=== PATIENT | female | born 1965 | race Caucasian/White ===

== ENCOUNTER 2023-12-06 10:58 | Emergency (ER) | payer OTHER, SELFPAY ==
[2023-12-06 11:00] VITALS: BP 136/77
[2023-12-06 11:04] VITALS: BP 136/77
[2023-12-06 11:11] VITALS: BMI 29.7
[2023-12-06 11:28] LABS: % Basophils 0.7 % (0-2); % Eosinophils 3.3 % (0-6); % Immature Granulocytes 0.1 % (0-0.5); % Lymphocytes 34.3 % (20.5-51.1); % Monocytes 5.5 % (1.7-9.3); % Neutrophils 56.1 % (42.2-75.2); Absolute Basophils 0.1 10^3/uL (0-0.2); Absolute Eosinophils 0.3 10^3/uL (0-0.7); Absolute Lymphocytes 2.8 10^3/uL (1.2-3.4); Absolute Monocytes 0.5 10^3/uL (0.1-0.6); Absolute Neutrophils 4.6 10^3/uL (1.4-6.5); Hemoglobin 13.2 g/dL (12.0-16.0); Mean Corp Hgb Conc. 34.7 g/dL (33.0-37.0); Mean Corpuscular Hgb 28.3 pg (27.0-31.0); Mean Corpuscular Volume 81.4 fL (81.0-99.0); Mean Platelet Volume 8.8 fL (7.4-10.4); Nucleated Red Blood Cells % 0 %; Platelet Count 310 10^3/uL (130-400); Red Blood Cell Count 4.67 10^6/uL (4.20-5.40); Red Cell Dist. Width 17.3 % (11.5-14.5); White Blood Cell Count 8.2 10^3/uL (4.8-10.8)
--- NOTE | 2023-12-06 11:35 | ED.GENMED ---
History of Present Illness
<Mary Long PA-C - Last Filed: 12/06/23 16:59>
General
Chief Complaint: Fall
Source: patient
Exam Limitations: none
Time Seen by Provider: 12/06/23 11:00
Nursing documentation reviewed up to this point in time: agreed with
Travel History
Have you had any contact with someone who has COVID-19?: No
Do you have any symptoms of coronavirus? Fever > 100 degrees, chills, cough, shortness of breath, sore throat, loss of taste or smell, muscle aches, or headache?: No
History of Present Illness
History of Present Illness:
Patient is a 58 year old female with asthma presenting via ems following mechanical fall at work about an hour ago. Patient states that she slipped coming down on her right elbow and right lateral knee. Patient reporting very severe pain in right
knee and has been unable to move knee since. She does endorse some tingling in right toes. She does have some pain in right elbow but has full range of motion. She did not hit her head or lose consciousness. She denies any chest pain, shortness
of breath, neck pain, back pain. She denies any belly pain.
She was given 75 mcg of fentanyl and 4 mg of Zofran in EMS.
Phy Exam
<Mary Long PA-C - Last Filed: 12/06/23 16:59>
Physical Exam
Physical Exam:
General: In moderate distress due to pain and non-toxic
Vitals: VSS, afebrile
HEENT: Atraumatic, normocephalic; pupils equal round and reactive to light bilaterally; protecting airway
Neck: appears supple, no cervical spine or midline spinal tenderness
CV: RRR, heart sounds normal, no evidence of cyanosis
Resp: No evidence of respiratory distress, lungs clear, no accessory muscle use
Abd: Soft, nontender; non-distended
Extremities: Diffuse swelling to right knee without any obvious deformity; tenderness at tibial tuberosity; very limited range of motion in knee due to pain; mild superficial abrasion to right elbow with small hematoma, no bony tenderness, full ROM
of right elbow; right lower extremity neurovascularly intact, right upper extremity neurovascularly intact
Neuro: alert and oriented to person, place, time; speech normal; no focal motor deficits
Psych: Normal affect
Skin: Superficial abrasion to right elbow
Course
<Mary Long PA-C - Last Filed: 12/06/23 16:59>
Orders/Labs/Results
Orders:
Orders
12/06/23 11:17
CR Elbow - Right Min 3 Views Urgent
Comment:
Reason For Exam: fall
CR Knee- Right 4 Or More View* Urgent
Comment:
Reason For Exam: fall
12/06/23 11:19
Complete Blood Count/With Diff Urgent
Comprehensive Metabolic Panel Urgent
12/06/23 12:42
CT Lower Ext W/o Iv Cont Rt Urgent
Comment: questionable fracture tibial tuberosity on xray
Reason For Exam: R knee
12/06/23 13:02
HYDROmorphone [Dilaudid] 1 mg IV NOW STA
Ondansetron Injectable [Zofran] 4 mg IV NOW STA
12/06/23 14:31
Crutches-Treatment ONCE
Knee Immobilizer Right-Treatme ONCE
12/06/23 15:36
PT Consult [Pt Eval And Treat] Urgent
Treatment: crutches
Activity Level: With Assistance
Abnormal Lab Results
12/06/23
11:19
RDW 17.3 H %
(11.5-14.5)
Creatinine 0.5 L mg/dL
(0.6-1.0)
Glucose 122 H mg/dl
(70-99)
12/06/23 11:19
12/06/23 11:19
Vital Signs
Initial and Last Documented VS:
Initial Vital Signs
Pulse Resp BP Pulse Ox
83 18 136/77 96
12/06/23 11:00 12/06/23 11:00 12/06/23 11:00 12/06/23 11:00
Last Documented Vital Signs
Temp Pulse Resp BP Pulse Ox
98.2 F 77 11 113/79 94
12/06/23 11:12 12/06/23 13:30 12/06/23 13:30 12/06/23 13:00 12/06/23 13:30
<Rajinder Odell DO - Last Filed: 12/06/23 15:30>
Orders/Labs/Results
Orders:
Orders
12/06/23 11:17
CR Elbow - Right Min 3 Views Urgent
Comment:
Reason For Exam: fall
CR Knee- Right 4 Or More View* Urgent
Comment:
Reason For Exam: fall
12/06/23 11:19
Complete Blood Count/With Diff Urgent
Comprehensive Metabolic Panel Urgent
12/06/23 12:42
CT Lower Ext W/o Iv Cont Rt Urgent
Comment: questionable fracture tibial tuberosity on xray
Reason For Exam: R knee
12/06/23 13:02
HYDROmorphone [Dilaudid] 1 mg IV NOW STA
Ondansetron Injectable [Zofran] 4 mg IV NOW STA
12/06/23 14:31
Crutches-Treatment ONCE
Knee Immobilizer Right-Treatme ONCE
12/06/23 15:36
PT Consult [Pt Eval And Treat] Urgent
Treatment: crutches
Activity Level: With Assistance
Abnormal Lab Results
12/06/23
11:19
RDW 17.3 H %
(11.5-14.5)
Creatinine 0.5 L mg/dL
(0.6-1.0)
Glucose 122 H mg/dl
(70-99)
12/06/23 11:19
12/06/23 11:19
Vital Signs
Initial and Last Documented VS:
Initial Vital Signs
Pulse Resp BP Pulse Ox
83 18 136/77 96
12/06/23 11:00 12/06/23 11:00 12/06/23 11:00 12/06/23 11:00
Last Documented Vital Signs
Temp Pulse Resp BP Pulse Ox
98.2 F 77 11 113/79 94
12/06/23 11:12 12/06/23 13:30 12/06/23 13:30 12/06/23 13:00 12/06/23 13:30
<aMry Long PA-C - Last Filed: 12/06/23 16:59>
MDM/Problems Addressed
Differential Diagnosis Includes:
Tibial fracture, patellar dislocation, knee sprain, ligamentous injury, elbow fracture
MDM/Problems Addressed:
Patient is a 58 y.o female presenting via EMS following mechanical fall at work earlier today. She fell and landed on right side of body, did not hit her head or lose consciousness. She complains of significant pain in right knee, unable to move
or bear weight. She also reports pain in right elbow. No neck pain, back pain. She is in mild distress due to pain upon arrival. Her vital signs are stable. Physical exam as documented above. She has a very superficial abrasion to right elbow
with small hematoma. She has some notable swelling to right knee most significant on medial aspect with tenderness over tibial plateau. No C-spine or midline spinal tenderness. Will give Dilaudid for pain and Zofran. Will get x-ray of right
elbow and right knee. Will reassess.
X-ray of elbow negative for any acute fracture or dislocation. X-ray of knee shows questionable fracture along lateral aspect tibial plateau�CT recommended. CT pending.
CT scan shows minimally impacted anterior lateral tibial plateau fracture without displacement. Discussed with orthopedics. Will place patient in knee immobilizer, crutches, nonweightbearing. Patient with significant difficulty with crutches�will
consult physical therapy.
Spoke with PT�patient successful with walker. Prescription written for walker. Patient will be discharged with knee immobilizer, nonweightbearing with walker, orthopedic follow-up. Patient comfortable this plan. All questions answered.
Chronic conditions affecting care:
Asthma, DM
Acute Exacerbation and/or Progression of Chronic Illness:
Right tibial plateau fracture
<Mary Long PA-C - Last Filed: 12/06/23 16:59>
*Radiology
Radiology exam reviewed: preliminary read by ED provider and radiology read reviewed
*Pulse Oximetry
Patient hypoxic: no
*Manager Image Interpretation
Rate: Manager Image- N/A
*Critical Care Note
Total Time (30-74mins, 75-104mins- exclusive of procedures): Not Applicable
ED Attending Note
<Mary Long PA-C - Last Filed: 12/06/23 16:59>
-
Portions of this chart may have been created with voice recognition software.� Occasional wrong word or��sound alike� substitutions may have occurred due to the inherent limitations of voice recognition software.
<Rajinder Odell DO - Last Filed: 12/06/23 15:30>
ED Attending Note
Patient seen and examined by attending physician: Yes
I performed the substantive portion of visit, reviewed & personally made and approve the management plan that is documented in note by myself or FARZANEH.: Yes
ED Attending Note:
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 Patient had difficulty weightbearing afterwards secondary to the pain in her right knee. Patient
is right-hand dominant. Patient denies any numbness or paresthesias. Patient denies any head injury, chest pain or abdominal pain. Patient denies any neck or back pain. On physical exam patient appears to be in mild to moderate distress
secondary to pain. Patient is normocephalic without neck tenderness. Chest is nontender abdomen is nontender. Patient does have swelling about the right knee but tender laterally. Right ankle is nontender. Right hip is nontender. In addition
the patient has mild bruising and swelling about the posterior aspect of the inferior elbow. Range of motion is full. Neurovascular and tendons intact in both areas. Patient's x-rays were reviewed as well as the CT it appears the patient has a
nondisplaced tibial plateau fracture. Patient will be treated with ice, compression, immobilization and crutches. Patient will be referred to orthopedics.
Discharge Plan
Departure
Patient Disposition: Home (Routine Discharge)
Date of Disposition: 12/06/23
Time of Disposition: 15:02
Patient with high blood pressure during this ER visit?: No
Condition: Good
Covid-19: Not Applicable
Discharge Problem:
Fracture of right tibial plateau, Injury of elbow, right
Instructions: Tibial Plateau Fracture (DC)
Prescriptions:
New
oxycodone-acetaminophen [Percocet] 5-325 mg tablet
See Rx Instructions .ROUTE .COMPLEX PRN (Reason: pain) Qty: 10 0RF
Rx Instructions:
1 tab orally Q4-6 hours as needed for pain
Referrals:
Amna Talavera PA [Family Provider] -
Aneesh Pizano MD [Active] - Call in 1-3 days for appt
Stand Alone Forms: Return to Work
Activity Restrictions/Additional Instructions:
- Return to the emergency department with any severe pain, severe headache, intractable vomiting, high fevers, chest pain, shortness of breath, numbness/ tingling in right lower extremity, worsening in current symptoms, or any other concerns
-As discussed�you have a fracture of your right tibial plateau. You should keep your knee in the immobilizer and remain non-weight bearing until you follow-up with orthopedics.
-A prescription for percocet has been sent to your pharmacy. You can take this every 4-6 hours as needed for pain. This medication may cause drowsiness. You can take tylenol as needed for pain.
-It is important that you apply ice to leg as frequently as possible.
-You should follow-up with orthopedics in a few days. You need to contact your workman compensation physician to determine covered orthopedics.
Interventions
Interventions:
*Risk Screen - Suicide Last Done: 12/06/23 11:00
*General Assessment Last Done: 12/06/23 11:00
*Neglect/Abuse Screening Last Done: 12/06/23 11:00
ED- Fall Risk Assessment Last Done: 12/06/23 16:43
*Nursing Disposition Last Done: 12/06/23 16:43
ED-Musculoskeletal Assessment Last Done: 12/06/23 11:34
ED- Neurological Assessment Last Done: 12/06/23 11:34
ED-Skin Assessment Last Done: 12/06/23 11:34
[2023-12-06 11:40] LABS: ALT (SGPT) 23 U/L (0-35); AST (SGOT) 29 U/L (14-36); Albumin 4.3 g/dl (3.5-5.0); Alkaline Phosphatase 46 U/L (38-126); Blood Urea Nitrogen 10 mg/dl (7-17); Carbon Dioxide 26 mmol/L (22-30); Chloride 105 mmol/L (98-107); Estimated Creatinine Clearance 115 ml/min; Glucose 122 mg/dl (70-99); Potassium 4.2 mmol/L (3.5-5.1); Sodium 137 mmol/L (135-145); Total Bilirubin 0.5 mg/dl (0.2-1.3); eGFR > 60.00
[2023-12-06 12:13] VITALS: BP 126/81
[2023-12-06 13:00] VITALS: BP 113/79
[2023-12-06] MEDS: ZOFRAN 4 MG IV (13:12)
[2023-12-06] MEDS: DILAUDID 1 MG IV (13:13)
== END 2023-12-06 16:45 | disposition home or self-care (01) ==
LOC: EMR 10:58
PROVIDERS: Physician Assistant; EMERGENCY PHYSICIAN Emergency Medicine; FAMILY PHYSICIAN Physician Assistant Medical
DX: S82.144A Nondisplaced bicondylar fracture of right tibia, initial encounter for closed fracture (principal); S50.01XA Contusion of right elbow, initial encounter; S50.311A Abrasion of right elbow, initial encounter; R11.0 Nausea; W18.30XA Fall on same level, unspecified, initial encounter; Y93.89 Activity, other specified; Y92.89 Other specified places as the place of occurrence of the external cause; Y99.0 Civilian activity done for income or pay; J45.909 Unspecified asthma, uncomplicated; E11.9 Type 2 diabetes mellitus without complications; F41.9 Anxiety disorder, unspecified; F32.A Depression, unspecified; F90.9 Attention-deficit hyperactivity disorder, unspecified type; Z79.84 Long term (current) use of oral hypoglycemic drugs; M43.22 Fusion of spine, cervical region
CPT/HCPCS: 99284; 96374; 29505; 96375; 73080; 73564; 73700; 80053; 85025

== ENCOUNTER 2024-02-04 17:09 | Emergency (ER) | payer OTHER, SELFPAY ==
[2024-02-04 17:18] VITALS: BP 161/84
[2024-02-04 17:39] LABS: % Basophils 0.6 % (0-2); % Eosinophils 1.3 % (0-6); % Immature Granulocytes 0.4 % (0-0.5); % Lymphocytes 17.4 % (20.5-51.1); % Monocytes 4.1 % (1.7-9.3); % Neutrophils 76.2 % (42.2-75.2); Absolute Basophils 0.1 10^3/uL (0-0.2); Absolute Eosinophils 0.2 10^3/uL (0-0.7); Absolute Immature Granulocytes 0.1 10^3/uL (0-0.05); Absolute Lymphocytes 2.2 10^3/uL (1.2-3.4); Absolute Monocytes 0.5 10^3/uL (0.1-0.6); Absolute Neutrophils 9.8 10^3/uL (1.4-6.5); Hematocrit 40.1 % (37.0-47.0); Hemoglobin 14.3 g/dL (12.0-16.0); Mean Corp Hgb Conc. 35.7 g/dL (33.0-37.0); Mean Corpuscular Hgb 29.3 pg (27.0-31.0); Mean Corpuscular Volume 82.2 fL (81.0-99.0); Mean Platelet Volume 8.9 fL (7.4-10.4); Nucleated Red Blood Cells % 0 %; Platelet Count 310 10^3/uL (130-400); Red Blood Cell Count 4.88 10^6/uL (4.20-5.40); Red Cell Dist. Width 14.1 % (11.5-14.5); White Blood Cell Count 12.9 10^3/uL (4.8-10.8)
[2024-02-04 17:42] LABS: Urine Albumin 1+ (Neg - Trace); Urine Bilirubin 1+ (Negative); Urine Character Very Cloudy (Clear); Urine Color Brown; Urine Glucose Negative (Negative); Urine Ketone 1+ (Negative); Urine Leukocyte 1+ (Negative); Urine Nitrite Positive (Negative); Urine Occult Blood 4+ (Negative); Urine Urobilinogen Negative (Neg - 1+)
[2024-02-04 17:53] LABS: HCG, Serum Qualitative Screen Negative
[2024-02-04 18:01] LABS: Urine Bacteria Moderate (Negative); Urine Red Blood Cell 70-80 /HPF (0-2)
[2024-02-04 18:06] LABS: ALT (SGPT) 20 U/L (0-35); AST (SGOT) 27 U/L (14-36); Albumin 5.1 g/dl (3.5-5.0); Alkaline Phosphatase 56 U/L (38-126); Blood Urea Nitrogen 12 mg/dl (7-17); Carbon Dioxide 27 mmol/L (22-30); Chloride 100 mmol/L (98-107); Glucose 118 mg/dl (70-99); Lipase 177 U/L (23-300); Potassium 4.3 mmol/L (3.5-5.1); Sodium 135 mmol/L (135-145); Total Bilirubin 0.8 mg/dl (0.2-1.3); eGFR > 60.00
--- NOTE | 2024-02-04 18:51 | ED.GENMED ---
History of Present Illness
General
Chief Complaint: Abdominal Pain
Source: patient
Exam Limitations: none
Time Seen by Provider: 02/04/24 18:29
Nursing documentation reviewed up to this point in time: agreed with
Travel History
Have you had any contact with someone who has COVID-19?: No
Do you have any symptoms of coronavirus? Fever > 100 degrees, chills, cough, shortness of breath, sore throat, loss of taste or smell, muscle aches, or headache?: No
History of Present Illness
History of Present Illness:
58 yr. old female presents with past medical history of gastric bypass surgery and gastritis to the ER complaining of sudden abdominal pain that started between 2 and 3 hours ago. She describes this as diffuse abdominal pain she is very nauseous
and uncomfortable. She has not vomited. She denies any fever or chills with the. She has no pain in her back. She has no prior history of kidney stones. She complains urinary frequency but no burning. She noticed yesterday that her urine was
little darker than normal. She denies any constipation diarrhea. She denies any black stools.
Patient does get colonoscopies every 3 years as both of her parents from colon cancer. No abnormalities on prior colonoscopies.
Review of Systems
Review of Systems
Allergies reviewed?: Yes
All Other Systems: ROS reviewed and negative except as documented in HPI and ROS
Constitutional: Reports no symptoms
Respiratory: Reports no symptoms
Cardiac: Reports no symptoms
ABD/GI: Reports abdominal pain and nausea; Denies vomiting, diarrhea or constipated
: Reports frequency; Denies flank pain or urgency
Musculoskeletal: Reports no symptoms; Denies back pain
Skin: Reports no symptoms
Neurological: Reports no symptoms
Psychiatric: Reports no symptoms
Phy Exam
General Physical Exam
General Presentation: no apparent distress
General age: appears stated age
General Skin: warm and dry
General Habitus: normal
General Mental: alert
General Hydration: appears well hydrated
Gastrointestinal Exam
Gastrointestinal Exam: soft and other (diffuse tenderness throughout anterior abdomen )
Neurological Exam
Neurological Exam: alert and oriented x3
Musculoskeletal Exam
Musculoskeletal Exam: full ROM
Skin Exam
Skin Exam: normal color and warm/dry
Psychiatric Exam
Psychiatric Exam: normal mood/affect
Course
Orders/Labs/Results
Orders:
Orders
02/04/24 17:22
Test Result ONCE
02/04/24 17:32
Complete Blood Count/With Diff Urgent
Comprehensive Metabolic Panel Urgent
HCG, Serum Qualitative Screen Urgent
Lipase Urgent
Urinalysis Reflex To Culture Urgent
Date Specimen was Collected: 02/04/24
Time Specimen was Collected: 17:22
Urine Microscopic Reflex Cult Urgent
Urine Culture Urgent
GIULIA Source: U
Specimen Description:
Date Specimen was Collected: 02/04/24
Time Specimen was Collected: 17:22
02/04/24 18:49
CT Abd/pel W Iv And Oral Contr Urgent
Comment:
Reason For Exam: diffuse abd pain nausea hx of gastric bypass surg
IV Insert/Care/Rem.- Treatment PRN
0.9% Sodium Chloride 1000 ml [Nss] 1,000 ml IV BOLUS
Iohexol [Omnipaque] See Protocol PO NOW STA
02/04/24 18:50
HYDROmorphone [Dilaudid] 0.5 mg IV NOW STA
Ondansetron Injectable [Zofran] 4 mg IV NOW STA
02/04/24 21:07
HYDROmorphone [Dilaudid] 0.5 mg IV NOW STA
02/04/24 21:08
HYDROmorphone [Dilaudid] 0.5 mg .ROUTE .STK-MED ONE
02/04/24 22:20
Cephalexin Monohydrate [Keflex] 500 mg PO NOW STA
Hydrocodone 5/APAP 325 [[place] 5/325] 1 tablet PO NOW STA
Abnormal Lab Results
02/04/24
17:32
WBC 12.9 H 10^3/uL
(4.8-10.8)
Abs Immat Gran (auto) 0.1 H 10^3/uL
(0-0.05)
Absolute Neuts (auto) 9.8 H 10^3/uL
(1.4-6.5)
Neutrophils % 76.2 H %
(42.2-75.2)
Lymphocytes % 17.4 L %
(20.5-51.1)
Glucose 118 H mg/dl
(70-99)
Albumin 5.1 H g/dl
(3.5-5.0)
Urine Ketones 1+ A
(Negative)
Ur Occult Blood Reflex 4+ A
(Negative)
Urine Nitrite (Reflex) Positive A
(Negative)
Urine Bilirubin 1+ A
(Negative)
Leukocyte Esterase Rfl 1+ A
(Negative)
Urine RBC 70-80 A /HPF
(0-2)
Urine Bacteria (Reflex) Moderate A
(Negative)
Urine Albumin (Reflex) 1+ A
(Neg - Trace)
02/04/24 17:32
02/04/24 17:32
Vital Signs
Initial and Last Documented VS:
Initial Vital Signs
Temp Pulse Resp BP Pulse Ox
98.3 F 72 20 161/84 100
02/04/24 17:18 02/04/24 17:18 02/04/24 17:18 02/04/24 17:18 02/04/24 17:18
Last Documented Vital Signs
Temp Pulse Resp BP Pulse Ox
98.3 F 88 16 132/80 96
02/04/24 17:18 02/04/24 19:40 02/04/24 19:40 02/04/24 19:40 02/04/24 19:40
Non Clinical Advisor consulted with Physician
Non Clinical Advisor consulted with physician?: Yes
Name of Physician Consulted: Mely
MDM/Problems Addressed
Differential Diagnosis Includes:
Not limited to diverticulitis obstruction renal colic
MDM/Problems Addressed:
Patient is a 58-year-old female with history of gastric bypass surgery presents with abdominal pain nausea. Patient does have significant blood on arrival to the ER and her urine in urinalysis but no gross hematuria. She denies any actual back
pain CAT scan does however show a 4 mm stone in the proximal portion of left ureter with mild hydromild perinephric standing. Patient denies any fevers. White count minimally elevated likely acute reactive. Patient has had nausea medicine and
pain medicine here. Urinalysis does show 70�80 RBCs consistent with stone there are nitrates and 6�10 white blood blood cells with squamous however with nitrates we will cautiously treat with Ceftin
*Critical Care Note
Total Time (30-74mins, 75-104mins- exclusive of procedures): Not Applicable
ED Attending Note
-
Portions of this chart may have been created with voice recognition software.� Occasional wrong word or��sound alike� substitutions may have occurred due to the inherent limitations of voice recognition software.
Discharge Plan
Departure
Patient Disposition: Home (Routine Discharge)
Date of Disposition: 02/04/24
Time of Disposition: 22:21
Patient with high blood pressure during this ER visit?: Yes
Condition: Fair
Covid-19: Not Applicable
Discharge Problem:
renal colic
Instructions: Renal Colic (DC)
Prescriptions:
New
cephalexin 500 mg capsule
500 mg PO BID Qty: 14 0RF
hydrocodone-acetaminophen 5-325 mg tablet
1 tab PO Q6H PRN (Reason: Pain) Qty: 10 0RF
ondansetron 4 mg tablet,disintegrating
4 mg PO Q8H PRN (Reason: nausea and vomiting) Qty: 10 0RF
No Action
oxycodone-acetaminophen [Percocet] 5-325 mg tablet
See Rx Instructions .ROUTE .COMPLEX PRN (Reason: pain) Qty: 10 0RF
Rx Instructions:
1 tab orally Q4-6 hours as needed for pain
Referrals:
Amna Talavera PA [Family Provider] -
Kolby Cruz Jr., MD [Active] -
Activity Restrictions/Additional Instructions:
As discussed stay well-hydrated. Prescriptions were sent for Zofran(, nausea medicine)Flomax to help pass the kidney stone and pain medicine to take as needed. These medications were sent to your pharmacy take as directed. Pain medication is a
narcotic and will cause constipation please take stool softeners which are [id number] while taking this medication. Call urology Tuesday for an appointment in the next several days. Return if any worsening of symptoms of increased pain nausea
vomiting fever chills.
Interventions
Interventions:
*Risk Screen - Suicide Last Done: 02/04/24 19:37
*General Assessment Last Done: 02/04/24 19:37
*Neglect/Abuse Screening Last Done: 02/04/24 19:37
ED- Fall Risk Assessment Last Done: 02/04/24 19:37
*ED COVID-19 Vaccine History Last Done: 02/04/24 19:37
MR-Fragqi-Rpitnshenk Assessment Last Done: 02/04/24 20:55
Discharge Date and Time
Print Language: BARBADIAN
[2024-02-04] MEDS: OMNIPAQUE 50 ML PO (19:23)
[2024-02-04] MEDS: DILAUDID 0.5 MG IV ×2 (19:33→21:10)
[2024-02-04] MEDS: ZOFRAN 4 MG IV (19:33)
[2024-02-04] MEDS: NSS 1000 IV (19:34)
[2024-02-04 19:37] VITALS: BMI 30.4
[2024-02-04 19:40] VITALS: BP 132/80
--- NOTE | 2024-02-04 21:00 | EDRN ---
Patient was having increased pain, informed Kaitlin, [employer], meds ordered to be given.
[2024-02-04] MEDS: NORCO 5/325 1 TABLET PO (22:29)
[2024-02-04] MEDS: KEFLEX 500 MG PO (22:29)
== END 2024-02-04 22:48 | disposition home or self-care (01) ==
LOC: EMR 17:09
PROVIDERS: EMERGENCY PHYSICIAN Emergency Medicine; FAMILY PHYSICIAN Physician Assistant Medical
DX: N13.2 Hydronephrosis with renal and ureteral calculous obstruction (principal); R11.0 Nausea; R03.0 Elevated blood-pressure reading, without diagnosis of hypertension; Z98.84 Bariatric surgery status; Z88.8 Allergy status to other drugs, medicaments and biological substances
CPT/HCPCS: 99285; 96361; 96374; 96375; 96376; 74177; 80053; 81003; 81015; 83690; 84703; 85025; 87086; Q9967

== ENCOUNTER 2024-02-06 19:29 | Observation (INO) | payer OTHER, SELFPAY ==
[2024-02-06 10:44] VITALS: BP 146/90
--- NOTE | 2024-02-06 12:40 | ED.GENMED ---
History of Present Illness
General
Chief Complaint: Flank Pain
Source: patient, records and previous radiology exam
Exam Limitations: none
Time Seen by Provider: 02/06/24 12:08
Nursing documentation reviewed up to this point in time: agreed with
Travel History
Have you had any contact with someone who has COVID-19?: No
Do you have any symptoms of coronavirus? Fever > 100 degrees, chills, cough, shortness of breath, sore throat, loss of taste or smell, muscle aches, or headache?: No
History of Present Illness
History of Present Illness:
58-year-old female returns with headache nausea vomiting flank pain seen here over the weekend diagnosed with a 4 mm proximal left ureteral stone discharged to home states she has been feeling unwell for the past 24 to 48 hours not keeping down any
fluids, no fevers but feels fatigued, never had a kidney stone before, she is concerned that she is getting dehydrated,
Past History
Past History
ED Past Surgical History: Orthopedic and Other (Gastric bypass); Negative Urological
Social History
Tobacco: Non-smoker
Alcohol: None
Drug: None
Personal:
Living: with family
Employment: Employed
Family History
Family History: Other (Noncontributory)
Review of Systems
Review of Systems
All Other Systems: Not applicable
Constitutional: Reports fatigue; Denies fever
EENT: Reports no symptoms
Respiratory: Reports no symptoms
Cardiac: Reports no symptoms
ABD/GI: Reports abdominal pain, nausea and vomiting
: Reports flank pain; Denies bleeding
Musculoskeletal: Reports no symptoms
Neurological: Reports dizzy and headache
Endocrine: Reports no symptoms
Hematologic/Lymphatic: Reports no symptoms
Phy Exam
Physical Exam
Physical Exam:
Physical Exam
General: nontoxic looks uncomfortable
Neck: Dry mucous membrane
Heart: s1/s2 regular rate and rhythm, no murmur. equal radial pulses.
Lungs: no acute respiratory distress. clear bilaterally
Abdomen: Mild tenderness in the left lower
Neuro: alert and oriented. no focal neurological deficits
Skin: no rash
Psychiatric: well kept. interactive and cooperative
Extremities: no edema.
Course
Orders/Labs/Results
Orders:
Orders
02/06/24 Lunch
Regular
At Your Request: Full Participation
02/06/24 12:21
IV Insert/Care/Rem.- Treatment PRN
0.9% Sodium Chloride 1000 ml [Nss] 1,000 ml IV BOLUS
HYDROmorphone [Dilaudid] 1 mg IV NOW STA
Ketorolac [Toradol] 15 mg IV NOW STA
Ondansetron Injectable [Zofran] 4 mg IV NOW STA
Test Result ONCE
02/06/24 12:50
Complete Blood Count/With Diff Urgent
Comprehensive Metabolic Panel Urgent
Comment: ADD ON
HCG, Serum Qualitative Screen Urgent
Urinalysis Reflex To Culture Urgent
Date Specimen was Collected: 02/06/24
Time Specimen was Collected: 12:44
Urine Microscopic Reflex Cult Urgent
02/06/24 13:06
Add On- LAB Urgent
Tests Added?: CMP
02/06/24 13:13
UROLOGY CONSULT Urgent
Consulting Provider: Ag Milligan
Was physician already notified: Yes
02/06/24 13:31
Abdomen Xray - 1 View [CR Abdomen - 1 View] Urgent
Comment:
Reason For Exam: kdiney stone
02/06/24 14:54
0.9% Sodium Chloride 1000 ml [Nss] 1,000 ml IV BOLUS
Ondansetron Injectable [Zofran] 4 mg IV NOW STA
02/06/24 17:31
Admit Patient As Directed
Co-Sign Provider:
Level of Care: Observation services
Assign to:: Medical/Surgical
Physician / Group: [facility]
Diagnosis: Kidney stone
Code Status As Directed
Resuscitation Status: Full Code
Acetaminophen [Tylenol] 650 mg PO Q4HPRN PRN
HYDROmorphone [Dilaudid] 0.5 mg IV Q2HPRN PRN
Ondansetron Injectable [Zofran] 4 mg IV Q6HPRN PRN
Oxycodone/Acetaminophen [Percocet 5/325] 1 tablet PO Q4HPRN PRN
Activity As Directed
Activity Level: As Tolerated
Intake/ Output As Directed
Frequency: Per unit guidelines
Okay to Shower As Directed
Strain Urine As Directed
Comment: strain all urine for stone
Vital Signs As Directed
Frequency: Per unit guidelines
02/06/24 17:32
Pneumatic Compression Sleeves As Directed
Type: Knee high
DX Deep Vein Thrombosis Video Routine
02/06/24 17:36
Budesonide [Pulmicort] 0.5 mg INH R BIDPRN PRN
CefTRIAXone [Rocephin] 1,000 mg IV NOW STA
02/06/24 17:45
0.9% Sodium Chloride 1000 ml [Nss] 1,000 ml IV 125 mls/hr
Sterile Water [Sterile Water For Injection] 10 ml IV NOW STA
02/06/24 18:00
Flush (0.9% Sodium Chloride) [Flush (Nss)] See Dose Instructions IV PER PROTOCOL
Ketorolac [Toradol] 15 mg IV Q6H
02/06/24 20:00
Sucralfate Suspension [Carafate Suspension] 10 gm PO BID
02/06/24 22:00
Duloxetine Delayed Release [Cymbalta Delayed Release] 60 mg PO HS
Montelukast Sodium [Singulair] 10 mg PO HS
Tamsulosin [Flomax] 0.4 mg PO HS
02/07/24 05:05
Basic Metabolic Panel IN AM
Complete Blood Count/No Diff IN AM
02/07/24 Breakfast
NPO
Allow oral meds: Yes
Allow clear liquids: No
02/07/24 08:00
Pantoprazole [Protonix] 40 mg PO DAILY
Abnormal Lab Results
02/06/24
12:50
Absolute Neuts (auto) 7.7 H 10^3/uL
(1.4-6.5)
Neutrophils % 76.3 H %
(42.2-75.2)
Lymphocytes % 16.7 L %
(20.5-51.1)
BUN 5 L mg/dl
(7-17)
Creatinine 0.4 L mg/dL
(0.6-1.0)
Glucose 108 H mg/dl
(70-99)
Urine Ketones 3+ A
(Negative)
Ur Occult Blood Reflex 4+ A
(Negative)
Urine RBC 7-10 A /HPF
(0-2)
Urine Bacteria (Reflex) Few A
(Negative)
02/06/24 12:50
02/06/24 13:00
Vital Signs
Initial and Last Documented VS:
Initial Vital Signs
Temp Pulse Resp BP Pulse Ox
98.7 F 97 18 146/90 96
02/06/24 10:44 02/06/24 10:44 02/06/24 10:44 02/06/24 10:44 02/06/24 10:44
Last Documented Vital Signs
Temp Pulse Resp BP Pulse Ox
98.1 F 75 19 98/65 100
02/07/24 07:06 02/07/24 07:06 02/07/24 07:06 02/07/24 07:06 02/07/24 07:06
MDM/Problems Addressed
Differential Diagnosis Includes:
Renal colic dehydration perhaps infection does not appear that the stone has passed
MDM/Problems Addressed:
Nausea vomiting flank pain
*Radiology
Radiology exam reviewed: radiology read reviewed
*Pulse Oximetry
Patient hypoxic: no
*Cost Coordinator Interpretation
Rate: normal
Interpretation: normal
Heart Rate: 78
Rhythm: sinus
*Critical Care Note
Total Time (30-74mins, 75-104mins- exclusive of procedures): Not Applicable
Data Reviewed
Review of Other/Old Records Reveals: Labs, Records and Radiology Studies
Source: patient
Further Testing Considered But Not Given:
CAT scan
Patient Management
Social determinants of health affecting care: Living situation and Strong social support
Discussion with other providers: [facility]
Update Note
Update Note:
Patient with moderate-sized proximal stone on the left sent home for trial of passage
Fairly symptomatic will hydrate antiemetics, will touch base with urology asked for consult
230 patient looks improved, KUB ordered report pending will keep n.p.o. for now
3 PM patient pain improved still nauseous still with a dry mouth continue hydration KUB noted report noted
ED Attending Note
-
Portions of this chart may have been created with voice recognition software.� Occasional wrong word or��sound alike� substitutions may have occurred due to the inherent limitations of voice recognition software.
Discharge Plan
Departure
Patient Disposition: Admit
Date of Disposition: 02/06/24
Time of Disposition: 14:28
Admit to: Med/Surg
Admit to doctor: Peffer-urology
Presentation/result/management discussed w/ accepting MD/DO: liseth
Patient with high blood pressure during this ER visit?: No
Condition: Good
Discharge Problem:
Kidney stone
Interventions
Interventions:
*Risk Screen - Suicide Last Done: 02/06/24 10:47
*General Assessment Last Done: 02/06/24 10:47
*Neglect/Abuse Screening Last Done: 02/06/24 10:47
*ED COVID-19 Vaccine History Last Done: 02/06/24 22:00
*Nursing Disposition Last Done: 02/06/24 21:00
[facility] Assessment Last Done: 02/06/24 12:18
ED-Female Genitourinary Assessment Last Done: 02/06/24 12:18
Discharge Date and Time
Discharge Date/Time: 02/06/24 21:00
[2024-02-06] MEDS: TORADOL 15 MG IV ×2 (12:44→18:24)
[2024-02-06] MEDS: ZOFRAN 4 MG IV ×2 (12:44→15:19)
[2024-02-06] MEDS: DILAUDID 1 MG IV (12:45)
[2024-02-06] MEDS: NSS 1000 IV ×3 (12:45→18:27)
[2024-02-06 13:01] LABS: % Basophils 0.4 % (0-2); % Eosinophils 0.9 % (0-6); % Immature Granulocytes 0.3 % (0-0.5); % Lymphocytes 16.7 % (20.5-51.1); % Monocytes 5.4 % (1.7-9.3); % Neutrophils 76.3 % (42.2-75.2); Absolute Eosinophils 0.1 10^3/uL (0-0.7); Absolute Lymphocytes 1.7 10^3/uL (1.2-3.4); Absolute Monocytes 0.6 10^3/uL (0.1-0.6); Absolute Neutrophils 7.7 10^3/uL (1.4-6.5); Hematocrit 37.8 % (37.0-47.0); Hemoglobin 13.3 g/dL (12.0-16.0); Mean Corp Hgb Conc. 35.2 g/dL (33.0-37.0); Mean Corpuscular Hgb 29.2 pg (27.0-31.0); Mean Corpuscular Volume 82.9 fL (81.0-99.0); Mean Platelet Volume 8.9 fL (7.4-10.4); Nucleated Red Blood Cells % 0 %; Platelet Count 275 10^3/uL (130-400); Red Blood Cell Count 4.56 10^6/uL (4.20-5.40); White Blood Cell Count 10.1 10^3/uL (4.8-10.8)
[2024-02-06 13:03] LABS: Urine Albumin Trace (Neg - Trace); Urine Bilirubin Negative (Negative); Urine Character Clear (Clear); Urine Color Yellow; Urine Glucose Negative (Negative); Urine Ketone 3+ (Negative); Urine Leukocyte Negative (Negative); Urine Nitrite Negative (Negative); Urine Occult Blood 4+ (Negative); Urine Specific Gravity 1.015 (<1.030); Urine Urobilinogen Negative (Neg - 1+)
[2024-02-06 13:07] LABS: HCG, Serum Qualitative Screen Negative
[2024-02-06 13:10] LABS: Urine Bacteria Few (Negative)
[2024-02-06 13:25] LABS: ALT (SGPT) 15 U/L (0-35); AST (SGOT) 30 U/L (14-36); Albumin 4.4 g/dl (3.5-5.0); Alkaline Phosphatase 51 U/L (38-126); Blood Urea Nitrogen 5 mg/dl (7-17); Calcium 9.6 mg/dl (8.4-10.2); Carbon Dioxide 28 mmol/L (22-30); Chloride 102 mmol/L (98-107); Glucose 108 mg/dl (70-99); Potassium 3.6 mmol/L (3.5-5.1); Sodium 138 mmol/L (135-145); Total Bilirubin 0.9 mg/dl (0.2-1.3); eGFR > 60.00
[2024-02-06 15:22] VITALS: BMI 30.6
[2024-02-06 15:23] VITALS: BP 116/80
--- NOTE | 2024-02-06 17:37 | HP.FOC2 ---
Focused History & Physical
Chief Complaint
HPI:
Chief Complaint: L flank pain, kidney stone
HPI / Indication for Planned Procedure:
58F with known 4mm L prox ureteral stone dx 2 days ago
Returned to ED with intractable pain and nausea and vomiting
Unable to tolerate PO fluids and worried about her hydration
KUB in ED showed no visible stone
Labs and UA showed no evidence of developing sepsis
No fevers/chills at home
She has no prior history of kidney stones or urologic issues
Relevant Past Medical History: Negative
Relevant Social History: Negative
Relevant Family History: Negative
Relevant Past Surgical History: Negative
Review of Systems
Review of Pertinent Systems: All Systems Negative
Medication
See Medication form for detailed medications: No
Medication List (including Herbals & OTC):
budesonide 0.5 mg/2 mL suspension for nebulization 0.5 mg inhalation R BIDPRN PRN sob 02/06/24
cephalexin 500 mg capsule 500 mg PO BID Infection 02/06/24
cholecalciferol (vitamin D3) 25 mcg (1,000 unit) tablet (Vitamin D3) 25 mcg PO DAILY Supplement 02/06/24
cyanocobalamin (vitamin B-12) 1,000 mcg tablet 1,000 mcg PO DAILY Supplement 02/06/24
duloxetine 60 mg capsule,delayed release (Cymbalta) 60 mg PO HS depression 02/06/24
ferrous sulfate 325 mg (65 mg iron) tablet 325 mg PO DAILY Supplement 02/06/24
hydrocodone 5 mg-acetaminophen 325 mg tablet 1 tab PO Q6HPRN PRN severe Pain 02/06/24
lisdexamfetamine 40 mg capsule 40 mg PO DAILY Neurological Condition 02/06/24
montelukast 10 mg tablet (Singulair) 10 mg PO HS Lung/Breathing Issues 02/06/24
ondansetron 4 mg disintegrating tablet 4 mg PO Q8HPRN PRN nausea and vomiting 02/06/24
pantoprazole 40 mg tablet,delayed release (Protonix) 40 mg PO DAILY Gastrointestinal Issue 02/06/24
sucralfate 100 mg/mL oral suspension (Carafate) 10 ml PO BID Gastrointestinal Issue 02/06/24
tamsulosin 0.4 mg capsule (Flomax) 0.4 mg PO DAILY Urinary Issue 02/06/24
Medications Reviewed: Yes
Allergies and Reactions
Patient has Allergies: Yes
Noted Allergies and Reactions:
Allergy/AdvReac Type Severity Reaction Status Date / Time
meclizine [From Antivert] Allergy Hives Verified 02/06/24 10:48
moxifloxacin [From Avelox] Allergy Hives Verified 02/06/24 10:48
Pertinent Physical Exam
All Other Systems: Negative
Head/Neck: Normal
Lungs: Normal
Heart: Normal
Abdomen: Normal
Extremities: Normal
Neurological: Normal
Diagnosis / Assessment
58F with pain/nausea/vomiting from 4mm L ureteral stone
Plan / Procedure
Admit for observation
NPO at [facility] for OR tomorrow - L ureteroscopy/laser lithotripsy
Toradol and PO meds PRN pain
Tamsulosin
Strain all urine
Ceftriaxone for prophylaxis
Anesthesia/Sedation to be done by Anesthesia Provider: Yes
[2024-02-06] MEDS: ROCEPHIN 1000 MG IV (18:23)
[2024-02-06] MEDS: STERILE WATER FOR INJECTION 10 ML IV (18:24)
[2024-02-06 21:22] VITALS: BP 127/65; BMI 29.6
[2024-02-06] MEDS: SINGULAIR 10 MG PO (22:40)
[2024-02-06] MEDS: CYMBALTA DELAYED RELEASE 60 MG PO (22:40)
[2024-02-06] MEDS: FLOMAX 0.400000000000000022 MG PO (22:40)
[2024-02-06] MEDS: CARAFATE SUSPENSION 1 GM PO (23:03)
[2024-02-06 23:17] VITALS: BP 105/65
[2024-02-07] MEDS: TORADOL 15 MG IV ×3 (00:51→11:32)
[2024-02-07] MEDS: NSS 1000 IV (05:06)
[2024-02-07 06:17] LABS: Hematocrit 30.6 % (37.0-47.0); Hemoglobin 10.7 g/dL (12.0-16.0); Mean Corpuscular Hgb 29.2 pg (27.0-31.0); Mean Corpuscular Volume 83.4 fL (81.0-99.0); Mean Platelet Volume 9.2 fL (7.4-10.4); Platelet Count 226 10^3/uL (130-400); Red Blood Cell Count 3.67 10^6/uL (4.20-5.40); Red Cell Dist. Width 13.9 % (11.5-14.5); White Blood Cell Count 6.4 10^3/uL (4.8-10.8)
[2024-02-07 06:56] LABS: Blood Urea Nitrogen 8 mg/dl (7-17); Calcium 8.3 mg/dl (8.4-10.2); Carbon Dioxide 29 mmol/L (22-30); Chloride 106 mmol/L (98-107); Estimated Creatinine Clearance 115 ml/min; Glucose 102 mg/dl (70-99); Potassium 3.8 mmol/L (3.5-5.1); Sodium 138 mmol/L (135-145); eGFR > 60.00
[2024-02-07 07:06] VITALS: BP 98/65
[2024-02-07] MEDS: PROTONIX 40 MG PO (08:26)
--- NOTE | 2024-02-07 09:12 | W.PN.URO.CBU ---
Today's Communication / Plan
-
OR today for L ureteroscopy
Likely discharge post op
Assessment / Plan
-
OR today for L ureteroscopy
Likely discharge post op
Diagnosis
-
Date of Service: February 07, 2024
-
Patient Diagnosis:
L ureteral stone
Post Op Day:
Subjective
-
minimal pain overnight
Objective
-
Vital Signs
Temp Pulse Resp BP Pulse Ox
98.1 F 75 19 98/65 100
02/07/24 07:06 02/07/24 07:06 02/07/24 07:06 02/07/24 07:06 02/07/24 07:06
Intake and Output
02/06/24 02/07/24 02/08/24
06:59 06:59 06:59
Intake Total 2215 / 2215
Output Total 200 / 200
Balance 2014
Intake:
Oral fluids 840 / 840
IV fluids (Total) 1375 / 1375
Output:
Urine, Voided 200 / 200
Laboratory Results
02/07/24 05:05
02/07/24 05:05
Physical Exam
-
General - well developed, well nourished, no acute distress
Chest - clear bilaterally
Abdomen - soft, non-tender
Skin - warm & dry with no rash
Neuro - AOx3, no motor deficits
Extremities - no edema
[2024-02-07 10:03] VITALS: BP 104/62; BP 98/65
[2024-02-07 10:15] VITALS: BP 99/59
[2024-02-07 10:30] VITALS: BP 108/67
--- NOTE | 2024-02-07 10:45 | PTCARENOTE ---
Patient returned to her room from pacu post cystoscopy with left ureteroscopy and stone extraction.Procedure was very short as the stone was almost in the bladder.The patient denies any pain.Vital signs are stable.She is ordered a regular diet and
scheduled for discharge later today.
[2024-02-07 10:55] VITALS: BP 120/65
[2024-02-07] MEDS: CARAFATE SUSPENSION 1 GM PO (11:31)
[2024-02-07] MEDS: Pyridium 200 MG PO (11:32)
--- NOTE | 2024-02-07 12:10 | CM ---
CM met with pt and son bedside
Pt for OR earlier this morning and dc order noted
Pt notes she has post-op family care at home and has her SPC for use as needed
No dc needs noted
Pt is OBS- OBS form verbally reviewed
Copy provided
Discharge Disposition- home, no needs- family transport
[2024-02-12 13:00] LABS: Stone Analysis Mass 11 mg
== END 2024-02-07 13:50 | disposition home or self-care (01) ==
LOC: 2 SOUTH 19:29
PROVIDERS: ADMITTING PHYSICIAN Urology; EMERGENCY PHYSICIAN Emergency Medicine; FAMILY PHYSICIAN Physician Assistant Medical
DX: N20.2 Calculus of kidney with calculus of ureter (principal); R10.9 Unspecified abdominal pain; R51.9 Headache, unspecified; R11.2 Nausea with vomiting, unspecified; E86.0 Dehydration; Z88.8 Allergy status to other drugs, medicaments and biological substances
CPT/HCPCS: 52353; 74018; 76000; 80048; 80053; 81003; 81015; 82365; 84703; 85025; 85027; 96361; 96374; 96375; 96376; 99285; G0378

== ENCOUNTER → 2024-07-10 07:05 | Outpatient (REF) | payer OTHER, SELFPAY | LOC: MRI 07:05 | PROVIDERS: ATTENDING PHYSICIAN Internal Medicine; FAMILY PHYSICIAN Physician Assistant Medical | DX: M54.59 Other low back pain (principal); M51.36 Other intervertebral disc degeneration, lumbar region; M54.16 Radiculopathy, lumbar region | CPT/HCPCS: 72148 ==

== ENCOUNTER → 2024-10-04 14:22 | Outpatient (REF) | payer OTHER, SELFPAY | LOC: WDC 14:22 | PROVIDERS: ATTENDING PHYSICIAN Physician Assistant Medical | DX: Z12.31 Encounter for screening mammogram for malignant neoplasm of breast (principal) | CPT/HCPCS: 77063; 77067 ==

== ENCOUNTER → 2025-05-06 08:11 | Outpatient (REF) | payer OTHER, SELFPAY | LOC: RAD 08:11 | PROVIDERS: ATTENDING PHYSICIAN Urology; FAMILY PHYSICIAN Physician Assistant Medical | DX: N20.0 Calculus of kidney (principal) | CPT/HCPCS: 76775 ==

== ENCOUNTER → 2025-08-13 14:40 | Outpatient (REF) | payer OTHER, SELFPAY | LOC: RAD 14:40 | PROVIDERS: ATTENDING PHYSICIAN Physician Assistant Medical | DX: R07.89 Other chest pain (principal) | CPT/HCPCS: 71046 ==

== ENCOUNTER → 2025-10-07 12:36 | Outpatient (REF) | payer OTHER, SELFPAY | LOC: WDC 12:36 | PROVIDERS: ATTENDING PHYSICIAN Physician Assistant Medical | DX: Z13.820 Encounter for screening for osteoporosis (principal); Z12.31 Encounter for screening mammogram for malignant neoplasm of breast | CPT/HCPCS: 77063; 77067; 77080 ==